=== PATIENT | female | born 1945 ===

== ENCOUNTER → 2020-07-09 | Outpatient (CLI) | payer MEDICAID ==
--- NOTE | 2020-07-09 17:05 | RAD ---
EXAM: Carotid Doppler sonogram. HISTORY: Dysarthria. Transient ischemic attack. Atherosclerosis. TECHNIQUE: Feng scale and color Doppler sonographic evaluation of the neck with spectral waveform analysis was performed and static images are submitted for review. FINDINGS: The peak systolic velocity within the right common carotid artery is 78 cm/sec. The peak systolic velocity within the right internal carotid artery is 49 cm/sec and the end diastolic velocity within the right internal carotid artery is 15 cm/sec. The right ICA/CCA ratio is less than 1.0. The peak systolic velocity within the left common carotid artery is 85 cm/sec. The peak systolic velocity within the left internal carotid artery is 62 cm/sec and the end diastolic velocity within the left internal carotid artery is 19 cm/sec. The left ICA/CCA ratio is less than 1.0. There is normal antegrade flow within both vertebral arteries. IMPRESSION: No Doppler evidence of greater than 50 percent stenosis involving the internal carotid arteries. PQRS Compliance Statement - Stenosis calculations for CT, MR and conventional angiography are based upon measurement of the distal ICA diameter in accordance with the NASCET methodology. Stenosis calculations for carotid ultrasound studies are derived from validated velocity criteria which are known to correlate with the NASCET methodology. Electronically signed by: Marjorie Thomas MD (07/09/2020 5:02 PM) [id number]
== END | disposition home or self-care (01) ==
LOC: US 15:21
PROVIDERS: ATTEND Family Medicine
DX: R47.1 Dysarthria and anarthria (principal); Z86.73 Personal history of transient ischemic attack (TIA), and cerebral infarction without residual deficits
CPT/HCPCS: 93880